=== PATIENT | female | born 1985 ===

== ENCOUNTER → 2017-05-11 | Outpatient (CLI) | payer OTHER ==
[~2017-05-11] MED LIST: Verotin-Gr Cap1 EACH
[2017-05-11 16:30] LABS: Specimen Source CERVIX
[2017-05-12 13:52] LABS: Source Cervix
[2017-05-12 14:39] LABS: Source Cervix
== END ==
LOC: LAB 16:25
PROVIDERS: Obstetrics & Gynecology
DX: Z12.4 Encounter for screening for malignant neoplasm of cervix (principal)
CPT/HCPCS: 87491; 87591; G0123